=== PATIENT | male | born 1955 | race Caucasian/White ===

== ENCOUNTER 2017-11-17 11:04 | Emergency (ER) | payer OTHER ==
[~2017-11-17] VITALS: Ht 172.7 cm; Wt 85.9 kg
--- NOTE | 2017-11-17 11:13 | NUR ---
PT AMBUALTED TO ER BED 04
[2017-11-17 11:14] VITALS: BP 176/88
--- NOTE | 2017-11-17 11:15 | NUR ---
62Y/F BIB C/O CHRONIC RT FOOT SWELLING; EDEMA NOTED; EVEN AND STEADY GAIT; CAME BACK FROM [place] 2 DAYS AGO; BED DOWN; BEDRAIL UP X 1; ER MD AWARE AND NOTIFIED OF PT STATUS. HX; DM, THN RX; CIPRO, MESULID, DAFLON, RANISEN, PLAVIX
--- NOTE | 2017-11-17 11:30 | NUR ---
Patient being evaluated by physician at bedside.
[2017-11-17 12:44] VITALS: BP 155/73
--- NOTE | 2017-11-17 12:44 | NUR ---
Patient discharged with v/s stable. Written and verbal after care instructions given and explained. Patient verbalized understanding. Ambulatory with steady gait. All questions addressed prior to discharge. Advised to follow up with PMD.
== END 2017-11-17 12:44 | disposition home or self-care (01) ==
LOC: MED 11:04
DX: L97.519 Non-pressure chronic ulcer of other part of right foot with unspecified severity (principal); E11.9 Type 2 diabetes mellitus without complications; I10 Essential (primary) hypertension
CPT/HCPCS: 82948; 99283